=== PATIENT | male | born 1955 | race Caucasian/White ===

== ENCOUNTER → 2024-07-24 08:57 | Outpatient (REF) | payer MEDICARE, BC, SELFPAY | LOC: HWRCS 08:57 | PROVIDERS: ATTENDING PHYSICIAN Family Medicine | DX: R06.09 Other forms of dyspnea (principal) | CPT/HCPCS: 93306 ==

== ENCOUNTER 2024-07-28 09:16 | Emergency (ER) | payer MEDICARE, BC, SELFPAY ==
[2024-07-28 09:22] VITALS: BP 151/104
[2024-07-28 10:22] VITALS: BP 127/72
[2024-07-28 10:39] LABS: % Basophils 0.4 % (0-2); % Eosinophils 1.2 % (0-6); % Immature Granulocytes 1.1 % (0-0.5); % Lymphocytes 19.2 % (20.5-51.1); % Neutrophils 70.1 % (42.2-75.2); Absolute Eosinophils 0.1 10^3/uL (0-0.7); Absolute Immature Granulocytes 0.1 10^3/uL (0-0.05); Absolute Lymphocytes 1.7 10^3/uL (1.2-3.4); Absolute Monocytes 0.7 10^3/uL (0.1-0.6); Absolute Neutrophils 6.3 10^3/uL (1.4-6.5); Hematocrit 42.7 % (39.0-52.0); Mean Corp Hgb Conc. 35.1 g/dL (33.0-37.0); Mean Corpuscular Hgb 28.6 pg (27.0-31.0); Mean Corpuscular Volume 81.3 fL (80.0-94.0); Mean Platelet Volume 10.2 fL (7.4-10.4); Nucleated Red Blood Cells % 0 % (-); Platelet Count 186 10^3/uL (130-400); Red Blood Cell Count 5.25 10^6/uL (4.70-6.10); Red Cell Dist. Width 13.3 % (11.5-14.5)
[2024-07-28 10:54] LABS: Blood Urea Nitrogen 16 mg/dl (9-20); Calcium 9.2 mg/dl (8.4-10.2); Carbon Dioxide 26 mmol/L (22-30); Chloride 104 mmol/L (98-107); Glucose 112 mg/dl (70-99); Sodium 140 mmol/L (135-145); eGFR > 60.00
--- NOTE | 2024-07-28 11:46 | ED.GENMED ---
History of Present Illness
General
Chief Complaint: Anal/Rectal Problem
Source: patient and spouse
Exam Limitations: none
Time Seen by Provider: 07/28/24 09:56
Nursing documentation reviewed up to this point in time: agreed with
History of Present Illness
History of Present Illness:
69-year-old male with past medical history of previous hypertension hyperlipidemia, previous aneurysm. Patient denies being on any blood thinners presenting to the emergency department today with concerns of bleeding hemorrhoid off-and-on over the
past few days. Mainly when having bowel movements. Denies any lightheadedness chest pain shortness of breath. Has long history of hemorrhoids denies any pain.
Past History
Past History
ED Past Medical History: HTN, Hypercholesterolemia and Other (ectasia of ascend aorta)
ED Past Surgical History: None
Social History
Tobacco: Non-smoker
Alcohol: Occasional
Drug: None
Personal:
Living: with family
Review of Systems
Review of Systems
Allergies reviewed?: Yes
All Other Systems: ROS reviewed and negative except as documented in HPI and ROS
Phy Exam
Physical Exam
Physical Exam:
GENERAL: Alert , in no apparent distress
EYE: pupils equal and reactive
NECK: Supple, no significant adenopathy.
ENT: o/p clr, mmm.
CARDIAC: Regular rate and rhythm .
LUNGS: Clear breath sounds bilaterally, no acute respiratory distress, no wheezes/rales/rhonchi
ABDOMEN: Rectal examination revealing left-sided hemorrhoid with centralized clot no active bleeding soft, without focal tenderness, no r/g, no cvat
NEUROLOGICAL: Alert and oriented, no focal neuro deficits
SKIN: Warm and dry, skin intact.
MUSCULOSKELETAL: No edema, well perfused.
PSYCH: Normal and appropriate interaction.
Course
Orders/Labs/Results
Orders:
Orders
07/28/24 10:20
BMP [Basic Metabolic Panel] Urgent
CBC/With Diff [Complete Blood Count/With Diff] Urgent
Abnormal Lab Results
07/28/24
10:20
Abs Immat Gran (auto) 0.1 H 10^3/uL
(0-0.05)
Absolute Monos (auto) 0.7 H 10^3/uL
(0.1-0.6)
Immature Gran % 1.1 H %
(0-0.5)
Lymphocytes % 19.2 L %
(20.5-51.1)
Glucose 112 H mg/dl
(70-99)
07/28/24 10:20
07/28/24 10:20
Vital Signs
Initial and Last Documented VS:
Initial Vital Signs
Temp Pulse Resp BP Pulse Ox
98.4 F 60 18 151/104 97
07/28/24 09:22 07/28/24 09:22 07/28/24 09:22 07/28/24 09:22 07/28/24 09:22
Last Documented Vital Signs
Temp Pulse Resp BP Pulse Ox
98.4 F 61 15 127/72 98
07/28/24 09:22 07/28/24 10:22 07/28/24 10:22 07/28/24 10:22 07/28/24 10:22
MDM/Problems Addressed
MDM/Problems Addressed:
69-year-old male presenting to the emergency department today with concerns of rectal bleeding over the past few days. Denies significant pain to the area has a long history of hemorrhoids. Has been using Preparation H without relief. Bleeding
has stopped since arrival here. Labs were obtained with hemoglobin of 15 vital signs are normal. No active bleeding on examination. Case discussed with colorectal surgery Dr. Douglass who can see him in the office tomorrow for further management.
Otherwise stable for discharge at this time. Return precautions given.
*Critical Care Note
Total Time (30-74mins, 75-104mins- exclusive of procedures): Not Applicable
ED Attending Note
-
Portions of this chart may have been created with voice recognition software.� Occasional wrong word or��sound alike� substitutions may have occurred due to the inherent limitations of voice recognition software.
Discharge Plan
Departure
Patient Disposition: Home (Routine Discharge)
Date of Disposition: 07/28/24
Time of Disposition: 11:49
Patient with high blood pressure during this ER visit?: No
Condition: Good
Covid-19: Not Applicable
Discharge Problem:
External bleeding hemorrhoids
Instructions: Hemorrhoids (DC)
Prescriptions:
New
hydrocortisone [Procto-Med HC] 2.5 % cream with perineal applicator
1 applic NH DAILY PRN (Reason: hemorrhoids) Qty: 30 0RF
No Action
pantoprazole 40 MG tablet,delayed release (DR/EC)
20 mg PO QPM
simvastatin 20 MG tablet
20 mg PO QPM
doxazosin 4 MG tablet
8 mg PO QPM
finasteride 5 MG tablet
5 mg PO QPM
potassium citrate 5 MEQ tablet extended release
5 meq PO BID
nebivolol 2.5 MG tablet
5 mg PO QPM
mupirocin 1 APPLIC ointment
1 applic intranasal BID Qty: 1 0RF
Patient Comments:
mupirocin started on 09/10 last dose 09/14/19 @7:30
sennosides [senna] 1 TABLET tablet
2 tab PO BID 0RF
aspirin 325 MG tablet
325 mg PO DAILY 0RF
prochlorperazine maleate 5 MG tablet
5 mg PO Q6HPRN PRN (Reason: nausea/vomiting) 0RF
docusate sodium 100 MG capsule
100 mg PO BID 0RF
ibuprofen 400 MG tablet
400 mg PO BID 0RF
Rx Instructions:
take with food
do not take within 2 hours of ASA
morphine 15 MG tablet extended release
15 mg PO Q12 Qty: 21 0RF
Rx Instructions:
take q12h x days, then daily x 7 days, then stop
Dx TKA
ongoing therapy
hydromorphone 4 MG tablet
4 mg PO Q4HPRN PRN (Reason: moderate-severe pain) Qty: 75 0RF
Rx Instructions:
dx TKA
ongoing therapy
magnesium hydroxide 30 ML suspension
30 ml PO HS Qty: 1 0RF
Rx Instructions:
take nightly until BM
Referrals:
Jodie Boyer MD [Family Provider] -
Bill Douglass MD [Active] - Tomorrow
Activity Restrictions/Additional Instructions:
You came to the emergency department today with concerns of a bleeding external hemorrhoid. You had a reassuring assessment today. Please call the colorectal surgery office to schedule appointment for tomorrow. Return to the emergency department
any worsening, new or concerning symptoms.
Interventions
Interventions:
*Risk Screen - Suicide Last Done: 07/28/24 09:22
*General Assessment Last Done: 07/28/24 09:22
*Neglect/Abuse Screening Last Done: 07/28/24 09:22
ED- Fall Risk Assessment Last Done: 07/28/24 10:21
VM-Mwizaf-Wkuictmefn Assessment Last Done: 07/28/24 10:24
ED- Cardiac Assessment Last Done: 07/28/24 10:24
ED- Pulmonary Assessment Last Done: 07/28/24 10:24
ED-Skin Assessment Last Done: 07/28/24 10:24
Discharge Date and Time
Print Language: UKRAINIAN
== END 2024-07-28 12:16 | disposition home or self-care (01) ==
LOC: EMR 09:16
PROVIDERS: Physician Assistant; EMERGENCY PHYSICIAN Emergency Medicine; FAMILY PHYSICIAN Family Medicine
DX: K64.4 Residual hemorrhoidal skin tags (principal); K62.5 Hemorrhage of anus and rectum; I10 Essential (primary) hypertension; E78.00 Pure hypercholesterolemia, unspecified; K57.90 Diverticulosis of intestine, part unspecified, without perforation or abscess without bleeding; K21.9 Gastro-esophageal reflux disease without esophagitis; N40.1 Benign prostatic hyperplasia with lower urinary tract symptoms; R35.0 Frequency of micturition; M19.90 Unspecified osteoarthritis, unspecified site; F41.9 Anxiety disorder, unspecified; Z87.440 Personal history of urinary (tract) infections; Z87.19 Personal history of other diseases of the digestive system; Z87.442 Personal history of urinary calculi; Z79.82 Long term (current) use of aspirin; Z88.1 Allergy status to other antibiotic agents; Z88.2 Allergy status to sulfonamides
CPT/HCPCS: 99283; 80048; 85025

== ENCOUNTER → 2024-08-17 06:51 | Outpatient (REF) | payer MEDICARE, BC, SELFPAY | LOC: MRI 3T 06:51 | PROVIDERS: ATTENDING PHYSICIAN Family Medicine | DX: R26.89 Other abnormalities of gait and mobility (principal); H53.9 Unspecified visual disturbance; R51.9 Headache, unspecified | CPT/HCPCS: 70551 ==

== ENCOUNTER → 2024-10-27 07:35 | Outpatient (REF) | payer MEDICARE, BC, SELFPAY | LOC: MRI 07:35 | PROVIDERS: ATTENDING PHYSICIAN Student in an Organized Health Care Education/Training Program; FAMILY PHYSICIAN Family Medicine | DX: I71.20 Thoracic aortic aneurysm, without rupture, unspecified (principal) | CPT/HCPCS: 71555 ==

== ENCOUNTER → 2025-03-25 14:41 | Outpatient (REF) | payer OTHER, SELFPAY | LOC: HWRAD 14:41 | PROVIDERS: ATTENDING PHYSICIAN Specialist; FAMILY PHYSICIAN Family Medicine | DX: N40.1 Benign prostatic hyperplasia with lower urinary tract symptoms (principal); Z87.442 Personal history of urinary calculi; N28.1 Cyst of kidney, acquired | CPT/HCPCS: 76770 ==

== ENCOUNTER 2025-09-28 06:05 | Day surgery (SDC) | payer OTHER, SELFPAY ==
[2025-09-17 11:06] LABS: Hematocrit 46.7 % (39.0-52.0); Hemoglobin 15.3 g/dL (13.0-18.0); Mean Corp Hgb Conc. 32.8 g/dL (33.0-37.0); Mean Corpuscular Volume 85.1 fL (80.0-94.0); Platelet Count 193 10^3/uL (130-400); Red Cell Dist. Width 14.0 % (11.5-14.5)
[2025-09-17 12:02] LABS: Blood Urea Nitrogen 16 mg/dl (9-20); Calcium 8.9 mg/dl (8.4-10.2); Carbon Dioxide 29 mmol/L (22-30); Chloride 105 mmol/L (98-107); Glucose 83 mg/dl (70-99); Potassium 4.7 mmol/L (3.5-5.1); Sodium 140 mmol/L (135-145); eGFR > 60.00
[2025-09-17 13:59] VITALS: BMI 31.8
[2025-09-28] VITALS (12 sets, daily range): BP systolic 120–147; BP diastolic 70–83; BMI 31.8
--- NOTE | 2025-09-28 08:37 | W.IMMPOSTOP ---
Surgical Immed Post Op Note
-
Primary Surgeon: Nury
Assisting Surgeon: None
Pre-op Diagnosis: BPH, urine retention
Post-op Diagnosis: Same
Procedure Performed: TURP
Anesthesia Type: GET
Specimen / Cultures: prostate chips
Estimated Blood Loss: 5 ml
Complications: None
[2025-09-28 09:27] LABS: Blood Urea Nitrogen 13 mg/dl (9-20); Calcium 8.1 mg/dl (8.4-10.2); Carbon Dioxide 29 mmol/L (22-30); Chloride 106 mmol/L (98-107); Estimated Creatinine Clearance 102 ml/min; Glucose 98 mg/dl (70-99); Potassium 4.0 mmol/L (3.5-5.1); Sodium 139 mmol/L (135-145); eGFR > 60.00
--- NOTE | 2025-09-28 10:17 | PTCARENOTE ---
Pt arrived to 2S in bed. Full assessment completed. CBI infusing, clear/light peach colored urine draining. Activity restrictions and diet reviewed with pt, pt verbalized understanding. Bed locked and in the lowest position, safety maintained.
Oriented to room and call purcell.
[2025-09-28] MEDS: COLACE 100 MG PO ×2 (11:22→16:06)
[2025-09-28] MEDS: NSS 1000 IV (11:23)
[2025-09-28] MEDS: ANCEF 5 IV (16:06)
[2025-09-29] MEDS: ANCEF 5 IV ×2 (00:03→08:05)
[2025-09-29 03:00] VITALS: BP 142/76
[2025-09-29 05:44] LABS: Hematocrit 43.0 % (39.0-52.0); Hemoglobin 14.2 g/dL (13.0-18.0); Mean Corp Hgb Conc. 33.0 g/dL (33.0-37.0); Mean Corpuscular Volume 85.7 fL (80.0-94.0); Platelet Count 181 10^3/uL (130-400); Red Cell Dist. Width 14.4 % (11.5-14.5)
[2025-09-29 06:06] LABS: Blood Urea Nitrogen 13 mg/dl (9-20); Calcium 8.4 mg/dl (8.4-10.2); Carbon Dioxide 28 mmol/L (22-30); Chloride 108 mmol/L (98-107); Estimated Creatinine Clearance 117 ml/min; Glucose 95 mg/dl (70-99); Potassium 3.8 mmol/L (3.5-5.1); Sodium 141 mmol/L (135-145); eGFR > 60.00
[2025-09-29 07:00] VITALS: BP 133/79
[2025-09-29] MEDS: COLACE 100 MG PO (08:05)
--- NOTE | 2025-09-29 08:45 | W.DS.TRANS ---
DC Summary - Improvement Intern
-
Discharge Instructions:
Instructions:
Stand-Alone Forms:
Changes to Home Medications: No
Discharge Medications:
DC Medications w/original date entered in [facility]
doxazosin 4 mg tablet 8 mg PO QPM 08/31/19
finasteride 5 mg tablet 5 mg PO QPM 08/31/19
potassium citrate 5 mEq (540 mg) tablet,extended release 5 meq PO BID 08/31/19
nebivolol 10 mg tablet 10 mg PO HS 09/21/25
pantoprazole 20 mg tablet,delayed release 20 mg PO HS 09/21/25
polyethylene glycol 3350 17 gram oral powder packet (Miralax) 17 g PO DAILY PRN constipation 09/21/25
psyllium 1 packet PO DAILY 09/21/25
rosuvastatin 5 mg tablet 5 mg PO HS 09/21/25
tirzepatide (weight loss) 5 mg/0.5 mL subcutaneous pen injector (Zepbound) 5 mg SC MO 09/21/25
turmeric 2,000 mg PO DAILY 09/21/25
Home Medication Changes
Pending Results: No
--- NOTE | 2025-09-29 09:02 | CM ---
CM reviewed medical records. CM met with patient in room. Patient confirmed demographics. Patient lives independently with . Patient does not have an history of VN, or SNF. Patient has a CPAP. Patient is active with his PCP.
CM will refer patient to [facility] for dempsey care and teaching.
PLAN: [facility]
[2025-09-29] MEDS: COLACE PO (12:46)
[2025-09-29 14:10] VITALS: BP 142/84
--- NOTE | 2025-09-29 15:59 | VNURNOTE ---
late entry: Home Health Liaison spoke with patient to discuss [facility] nurse/therapy, visits, schedule. Patient is agreeable and understands that visits at home will be 2-3 x per week to assess and teach medical and dempsey management.
Patient is aware that [facility] will contact them for start of care in 1-2 days after discharge from .
[facility] referral accepted in [facility].
== END 2025-09-29 14:37 | disposition home or self-care (01) ==
LOC: SDS 06:05
PROVIDERS: ATTENDING PHYSICIAN Specialist; FAMILY PHYSICIAN Family Medicine
DX: N40.1 Benign prostatic hyperplasia with lower urinary tract symptoms (principal); R33.8 Other retention of urine; N41.9 Inflammatory disease of prostate, unspecified
CPT/HCPCS: 52601; 36415; 80048; 85027; 88305; 93005

== ENCOUNTER → 2025-10-26 08:19 | Outpatient (REF) | payer OTHER, SELFPAY | LOC: RCS 08:19 | PROVIDERS: ATTENDING PHYSICIAN Student in an Organized Health Care Education/Training Program; FAMILY PHYSICIAN Family Medicine | DX: R07.89 Other chest pain (principal) | CPT/HCPCS: 93017; 93350; Q9950 ==

== ENCOUNTER → 2025-11-03 08:09 | Outpatient (REF) | payer OTHER, SELFPAY | LOC: HWRCS 08:09 | PROVIDERS: ATTENDING PHYSICIAN Student in an Organized Health Care Education/Training Program; FAMILY PHYSICIAN Family Medicine | DX: R42 Dizziness and giddiness (principal) | CPT/HCPCS: 93306 ==